=== PATIENT | female | born 1950 | race Caucasian/White ===

== ENCOUNTER 2016-05-13 09:14 | Inpatient (IN) ==
[2016-05-13] MEDS ORDERED: CeFAZolin Pre 2,000 MG/100 ML 2,000 MG/100 ML BAG IVPB ONE (09:44)
--- NOTE | 2016-05-13 10:15 | History & Physical Report ---
Date of Encounter: 05/13/16 Time of Encounter: 10:14 24 Hour HP Update - Instructions Instructions: If the History and Physical is less than 30 days old and was completed prior to A.M. admission and or procedure and has NOT been updated on calendar day of procedure please complete this update prior to performing procedure. - Update Patient reports changes in Medical Condition: No Changes in assessment/condition: No Changes in Medication: No Preop tests/diagnostics Reviewed: Yes Surgery Remains Indicated: Yes Consent for Planned Operative Procedure(s) Verified: Yes - Pre-Operative Checklist Preoperative Checklist Indicated: Yes Prophylactic Antibiotic Ordered: Yes Home Medications Include Beta Aurelio: No Beta Aruelio Taken Today (Day of Surgery): No Beta Aurelio Taken Yesterday (Day Prior to Surgery): No Is VTE Prophylaxis Indicated?: Yes
[2016-05-13] MEDS ORDERED: *HR* FentaNYL (PF) 100 MCG/2 ML VIAL ONE (10:20)
[2016-05-13] MEDS ORDERED: *HR* Propofol 200 MG/20 ML VIAL IVP ONE (10:20)
[2016-05-13] MEDS ORDERED: Lidocaine -MPF 2% 2 ML VIAL ONE ×3 (10:20→16:17)
[2016-05-13] MEDS ORDERED: *HR* Rocuronium Bromide 50 MG/5 ML VIAL ONE ×3 (10:20→15:41)
[2016-05-13] MEDS ORDERED: *HR* Midazolam HCl 2 MG/2 ML VIAL ONE (10:20)
[2016-05-13] MEDS ORDERED: Ondansetron 4 MG/2 ML VIAL ONE (10:20)
[2016-05-13] MEDS ORDERED: Bupivacaine/Clonidine Syringe 1 EACH SYRINGE ONE (10:22)
--- NOTE | 2016-05-13 10:28 | Anesthesia Evaluation PreOp ---
Date of Encounter: 05/13/16 Time of Encounter: 10:26 - Past History Planned Operation: robot/lap tvt, sacroplexy Cardiac History: HTN, Hyperlipidemia Pulmonary History: Asthma CURTAIN SUPERVISOR History: Denies Any Significant HX Other Medical History: Diabetes Type II Anesthesia History: No Prior Anesthetic Complications, Past Anesthesia (kai) Alcohol Use: none Drug use: none Medications and Allergies Allergies canagliflozin [From Invokana] Allergy (Verified 06/17/15 15:05) Dizziness escitalopram [From Lexapro] Allergy (Verified 06/17/15 15:03) Hives lamotrigine Allergy (Verified 06/17/15 15:03) Hives latex Allergy (Unverified 05/08/16 09:35) Hives naltrexone Allergy (Verified 06/17/15 15:03) Hives perphenazine Allergy (Verified 06/17/15 15:03) Hives pitavastatin [From Livalo] Allergy (Verified 06/17/15 15:03) Hives sitagliptin [From Januvia] Allergy (Verified 06/17/15 15:05) Hives Muhhpik-Zct-Nnt Reductase Inhibitor [Statins] Allergy (Verified 06/17/15 15:03) Hives - Meds/Allergy Pre-op Review Medications Reviewed: Yes Allergies Reviewed: Yes Beta Blockers on Current Med List: No Anesthesia Results - Labs Laboratory Tests 05/08/16 05/08/16 09:36 09:36 Hgb 13.6 Hct 40.6 Plt Count 298 Sodium 139 Potassium 4.2 Creatinine 0.81 - Imaging EKG: report reviewed (nsr) Anesthesia Exam O2 Sat Height 1.55 m Height 1.55 m Height 1.55 m Height 1.55 m Weight 62.596 kg Weight 62.596 kg Weight 62.596 kg Weight 62.596 kg O2 Sat by Pulse Oximetry 98 O2 Sat by Pulse Oximetry 98 Vital Signs Temp Pulse Resp BP Pulse Ox 97.9 F 84 18 160/87 98 05/13/16 09:57 05/13/16 09:57 05/13/16 09:57 05/13/16 09:57 05/13/16 09:57 Blood glucose: 174 Height: 1.55 Weight: 63 NPO (# of Hours): >8 - HEENT Pupil (Motor): Pupils equal, EOMI Mallampati: I Teeth: Normal Oral Opening: Greater than 3 - CURTAIN SUPERVISOR LOC: Oriented CURTAIN SUPERVISOR Motor: Normal RUE, Normal LUE, Normal RLE, Normal LLE, Normal Face CURTAIN SUPERVISOR Sensory: Normal: RUE, LUE, RLE, LLE, Face - Cardiac Rhythm: Regular Murmur: None - Pulmonary Breath Sounds: bilateral Clear Respiratory Effort: Symmetrical Anesthesia Assess/Plan ASA Score: 2 Modified Pitkin Scale for Level of Consciousness: Cooperative, oriented, and tranquil Anesthetic Plan: General Monitoring Plan: Standard Monitors Recovery Plan: PACU
[2016-05-13] MEDS ORDERED: Bupivacaine/EPI 1:200k 0.25%PF 10 ML VIAL INFILT ONE (10:29)
[2016-05-13] MEDS ORDERED: Lidocaine/EPI 1:200k 1% PF 10 ML VIAL ONE (10:29)
[2016-05-13] MEDS ORDERED: Lidocaine/EPI 1:100k 1% 20 ML VIAL ONE (10:29)
[2016-05-13] MEDS: Ringers Solution, Lactated 1,000 ML IVC SCH ×2 (10:30→17:28)
[2016-05-13] MEDS ORDERED: Bupivacaine/EPI 1:200k 0.5%PF 10 ML VIAL ONE (10:30)
[2016-05-13] MEDS ORDERED: Albuterol 2.5 MG/3 ML NEBULIZER ONE (10:32)
[2016-05-13] MEDS ORDERED: Lidocaine -MPF 4% 5 ML AMPUL ONE (10:37)
--- NOTE | 2016-05-13 11:24 | Anesthesia Procedures ---
Date of Encounter: 05/13/16 Time of Encounter: 11: Procedures: Anesthesia - Nerve Block Procedure Date: 05/13/16 Time: 11:22 Allergies/Adv Reactions: see emr Surgical Procedure: l/s sacrocorpolexy Checklist: Correct Patient Identifier, Correct procedure, History checked Blood Thinner: No Monitor Applied: EKG, BP, Pulse Oximetry Supplemental Oxygen via Nasal Cannula (L/min): 2 (geta) Indication: Post Op Analgesia Pre-op Neuro Deficits: No Block Type: Other (bilateral QL1) Catheter placed: No Sterile Technique: Yes Ultrasound used: Yes Anatomy identified: Yes Visual spread of Local: Yes Neuro Stimulation: No Blood on Needle Aspiration: No Smooth Injection of Local: Yes Pain with Injection of Local: No Prep: Chlorhexadine Needle: 21 x 100 mm Stimuplex Local: 0.25% Bupivicaine w/Clonidine 20 mcg/cc Volume (cc): 60 Number of Attempts: 1 (30mL bilaterally) Complications: None/effective block Vitals: Vital Signs/O2 Sat/Glucose, Most Recent Temp Pulse Resp BP Pulse Ox 97.9 F 84 18 160/87 98 05/13/16 09:59 05/13/16 09:59 05/13/16 09:59 05/13/16 09:59 05/13/16 09:59 Blood Glucose* 174
[2016-05-13] MEDS ORDERED: EPHEDrine 50 MG/ML VIAL ONE (11:47)
[2016-05-13] MEDS ORDERED: *HR* Remifentanil 2 MG VIAL IVP ONE (11:56)
[2016-05-13] MEDS ORDERED: Ondansetron 4 MG/2 ML VIAL IVP ONE (12:02)
[2016-05-13] MEDS ORDERED: *HR* HYDROmorphone (PF) 1 MG/ML SYRINGE IVP PRN ×2 (12:02→18:46)
[2016-05-13] MEDS ORDERED: *HR* HYDROmorphone 2 MG/ML SYRINGE ONE (15:29)
[2016-05-13] MEDS ORDERED: *HR* Magnesium Sulfate 1 GM/2 ML VIAL ONE (15:30)
[2016-05-13] MEDS ORDERED: Ketamine *HR* 500 MG/10 ML MDV ONE (15:32)
[2016-05-13] MEDS ORDERED: Ketorolac 30 MG/ML VIAL ONE (15:35)
[2016-05-13] MEDS ORDERED: Neostigmine Methylsulfate 3 MG/3 ML SYRINGE ONE (16:13)
[2016-05-13] MEDS ORDERED: Acetaminophen IV 1,000 MG/100 ML INFUS..BTL ONE (16:20)
--- NOTE | 2016-05-13 18:05 | OB/GYN Procedure Note ---
OB-DISH PERSON: Procedure - Diagnosis Date of procedure: 05/13/16 Pre-op diagnosis: Pelvic prolapse, JENNIFER Post-op diagnosis: other (Extensive dense pelvic adhesions) - Procedure Procedure: robotic l/s with extensive BILLIE for 1 hr, laparotomy with sacro, tvt and cys Surgeon: Kit Brooks Agricultural Equipment Test Engineer: Melissa Tay Anesthesia Type: General Estimated blood loss (cc): 700 Fluids: crystalloid Specimens collected: None Disposition: PACU Findings: Extensive pelvic adhesions b/w omenturm, rectosigmoid colon and vagina /bladder on left. Extensive adhesions b/w rectum and small bowel to right pelvic side wall obliterating presacral space, 3rd degree cystocele and rectocele.
--- NOTE | 2016-05-13 18:29 | Anesthesia Evaluation Post Op ---
Date of Encounter: 05/13/16 Time of Encounter: 18:28 - Vital Signs Vital Signs: Last Vital Signs Temp 97.4 F L 05/13/16 17:55 Pulse 74 05/13/16 18:15 Resp 16 05/13/16 18:15 BP 97/44 05/13/16 18:15 Pulse Ox 96 05/13/16 18:15 - Lungs Lungs: Clear Ascult./Percussion - Airway Airway: Non-obstructed - Cardiovascular Regular Rate - Mental Status Mental Status: Alert & Oriented, Answers Appropriately - Pain Pain Scale: 4 - Nausea Vomiting Nausea Vomiting: Not Present - Hydration Hydration: Ice chips - Discharge PostOp Status: Transfer Patient to floor
[2016-05-13] MEDS ORDERED: Naloxone 0.4 MG/ML INJ IVP PRN (18:46)
[2016-05-13] MEDS ORDERED: clonazePAM 0.5 MG TABLET PO PRN (18:46)
[2016-05-13] MEDS ORDERED: Insulin LISPRO 300 UNITS/3 ML VIAL SQ STA ×2 (19:33→21:42)
[2016-05-13] MEDS ORDERED: Insulin LISPRO 300 UNITS/3 ML VIAL SQ ONE (19:42)
[2016-05-13] MEDS: 0.9 % Sodium Chloride 1,000 ML IVC SCH (19:44)
[2016-05-13] MEDS: *HR* Metformin 500 MG TABLET PO SCH (19:49)
[2016-05-14] MEDS: 0.9 % Sodium Chloride 1,000 ML IVC SCH ×2 (03:51→17:17)
[2016-05-14 04:07] LABS: Basophils % 0.2 %; Hematocrit 22.8 % (35.3-44.9); Immature Granulocytes % 0.8 % (0-4); Lymphocytes # 1.1 K/mcL (0.6-4.6); Lymphocytes % 8.5 %; Mean Corpuscular HGB Conc 33.3 g/dL (31.6-35.5); Mean Corpuscular Hemoglobin 30.5 pg (28.0-33.3); Mean Corpuscular Volume 91.6 fL (83.0-100.0); Mean Platelet Volume 9.8 fL (9.4-12.4); Neutrophils # 10.6 K/mcL (1.6-8.9); Platelet Count 223 K/mcL (140-400); Red Blood Count 2.49 M/mcL (3.82-4.97); Red Cell Distribution Width 12.7 % (11.5-14.5); Segmented Neutrophils % 82.5 %
[2016-05-14 04:12] LABS: Hemoglobin 7.6 g/dL (11.5-15.4)
[2016-05-14] MEDS: *HR* OxyCODONE/APAP 5/325 TABLET PO PRN ×3 (06:20→20:59)
[2016-05-14] MEDS ORDERED: Insulin LISPRO 300 UNITS/3 ML VIAL SQ STA (06:40)
[2016-05-14] MEDS ORDERED: *HR* Dextrose 50 % in Water (Syg) 50 ML SYRINGE IVP PRN (07:29)
[2016-05-14] MEDS ORDERED: D5% in Water 1,000 ML IV PRN (07:29)
[2016-05-14] MEDS ORDERED: Dextrose Gel 15 GM PO PRN ×2 (07:29)
--- NOTE | 2016-05-14 07:42 | OB/GYN Progress Note ---
Date of Encounter: 05/14/16 Time of Encounter: 07:41 - Assessment and Plan (1) Pelvic prolapse Current Visit: Yes Status: Acute Doing well, s/p sacrocolpopexy Qualifiers: Prolapse type: cystocele Cystocele location: midline Qualified Code(s): N81.11 - Cystocele, midline (2) Stress bladder incontinence, female Current Visit: Yes Status: Acute s/p tvt, cont. post op care (3) Anemia Current Visit: Yes Status: Acute recheck h/h 14:00, no evidence of active bleeding. Qualifiers: Anemia type: other cause Other causes of anemia: acute posthemorrhagic Qualified Code(s): D62 - Acute posthemorrhagic anemia (4) Diabetes Current Visit: Yes Status: Acute Start SSI and follow BS Qualifiers: Diabetes mellitus type: type 2 Chronic kidney disease stage: unspecified stage Qualified Code(s): E11.22 - Type 2 diabetes mellitus with diabetic chronic kidney disease Subjective - Subjective Principal diagnosis: s/p sacrocolpopexy and tvt Interval history: Doing well without c/o. Good pain control. Hasn't been OOB yet. Clears without n/v. Objective - Vital Signs Latest vital signs: Vital Signs Temp Pulse Resp BP Pulse Ox 05/14/16 03:16 98.3 F 89 20 83/50 96 05/13/16 23:45 97.7 F 92 20 87/51 97 05/13/16 21:40 97.3 F L 93 20 89/54 95 05/13/16 20:30 97.5 F L 84 20 87/53 96 05/13/16 19:45 97.4 F L 90 22 108/67 97 05/13/16 19:15 97.4 F L 82 20 103/62 96 05/13/16 18:46 97.4 F L 77 10 102/60 100 05/13/16 18:28 97.8 F 85 16 113/52 96 05/13/16 18:15 74 16 97/44 96 05/13/16 18:05 74 20 109/52 100 05/13/16 17:55 97.4 F L 86 20 92/44 100 05/13/16 17:45 85 16 86/39 97 05/13/16 17:35 80 16 94/45 98 02/20/17 17:25 98.3 F 75 16 87/48 93 L 05/13/16 17:15 71 16 87/43 92 L 05/13/16 17:05 67 16 84/46 94 L 05/13/16 16:55 98.6 F 74 16 93/50 98 05/13/16 09:59 97.9 F 84 18 160/87 98 05/13/16 09:57 97.9 F 84 18 160/87 98 Intake and Output 05/13/16 05/13/16 05/14/16 15:59 23:59 07:59 Intake Total 100 / 100 1350 / 1350 1250 / 1250 Output Total 1375 / 1375 250 / 250 Balance 100 / 100 -25 / -25 1000 / 1000 Intake: IV Fluids 100 / 100 1150 / 1150 950 / 950 0.9 % Sodium Chloride 1, 950 / 950 000 ML @ 125 mls/hr IVC . Q8H [facility] Rx#:[id number] Lactated Ringers 1,000 ML 1150 / 1150 @ 20 mls/hr IVC .Q24H [facility] Rx#:[id number] Ancef Premix 2,000 MG/100 100 / 100 ML 2,000 mg In 100 ml @ 200 mls/hr IVPB PREOP ONE Rx#:[id number] Oral 200 / 200 300 / 300 Output: Estimated Blood Loss 700 / 700 Urine Amount (Catheter) 325 / 325 Catheter 350 / 350 250 / 250 Other: Weight 62.596 kg 66 kg 67.2 kg Blood Glucose* 174 227 222 Patient Weight 05/14/16 23:59 Weight 67.2 kg - I&O's I&O's: Intake & Output 05/11/16 05/12/16 05/13/16 05/14/16 23:59 23:59 23:59 23:59 Intake Total 1450 / 1450 1250 / 1250 Output Total 1375 / 1375 250 / 250 Balance 75 / 75 1000 / 1000 Weight 66 kg 67.2 kg - Exam Lungs: bilateral: normal Chest: Normal S1, Normal S2 Extremities: Present: normal Abdomen: Present: soft Incision OB: Present: dressed - Labs Labs: Abnormal lab results WBC 12.8 K/mcL (4.3-11.1) H D 05/14/16 03:51 RBC 2.49 M/mcL (3.82-4.97) L 05/14/16 03:51 Hgb 7.6 g/dL (11.5-15.4) L D 05/14/16 03:51 Hct 22.8 % (35.3-44.9) L 05/14/16 03:51 Neutrophils # 10.6 K/mcL (1.6-8.9) H 05/14/16 03:51 POC Glucose 222 (58-89) H 05/14/16 06:24 Consult Discharge Plan - Plan Referrals: Prosper Arauz MD [Primary Care Provider] -
[2016-05-14] MEDS: Insulin LISPRO 300 UNITS/3 ML VIAL SQ SCH ×3 (08:34→17:14)
[2016-05-14] MEDS: *HR* Metformin 500 MG TABLET PO SCH ×3 (08:34→20:54)
[2016-05-14] MEDS: Aspirin Enteric Coated 81 MG Tablet PO SCH (09:28)
[2016-05-14] MEDS: *HR* Glimepiride 2 MG TABLET PO SCH (09:28)
[2016-05-14] MEDS: Lisinopril-HCTZ 20-12.5mg TABLET PO SCH (09:29)
[2016-05-15] MEDS: Ondansetron 4 MG/2 ML VIAL IVP PRN ×2 (00:17→07:05)
[2016-05-15] MEDS ORDERED: Ondansetron 4 MG/2 ML VIAL IM ONE (06:48)
[2016-05-15] MEDS ORDERED: Ondansetron ODT 4 MG TAB.RAPDIS SL ONE (07:10)
[2016-05-15 08:12] LABS: Basophils % 0.3 %; Eosinophils % 0.2 %; Hematocrit 22.2 % (35.3-44.9); Hemoglobin 7.4 g/dL (11.5-15.4); Immature Granulocytes % 0.8 % (0-4); Lymphocytes # 1.2 K/mcL (0.6-4.6); Lymphocytes % 10.7 %; Mean Corpuscular HGB Conc 33.3 g/dL (31.6-35.5); Mean Corpuscular Hemoglobin 30.5 pg (28.0-33.3); Mean Corpuscular Volume 91.4 fL (83.0-100.0); Mean Platelet Volume 10.3 fL (9.4-12.4); Monocytes # 0.9 K/mcL (0.0-1.3); Monocytes % 8.6 %; Neutrophils # 8.6 K/mcL (1.6-8.9); Platelet Count 185 K/mcL (140-400); Red Blood Count 2.43 M/mcL (3.82-4.97); Red Cell Distribution Width 12.9 % (11.5-14.5); Segmented Neutrophils % 79.4 %
[2016-05-15] MEDS: *HR* Glimepiride 2 MG TABLET PO SCH (08:51)
[2016-05-15] MEDS: Lisinopril-HCTZ 20-12.5mg TABLET PO SCH (08:51)
[2016-05-15] MEDS: Aspirin Enteric Coated 81 MG Tablet PO SCH (08:52)
[2016-05-15] MEDS: *HR* Metformin 500 MG TABLET PO SCH ×3 (08:53→19:49)
[2016-05-15] MEDS: Insulin LISPRO 300 UNITS/3 ML VIAL SQ SCH ×3 (09:03→16:49)
[2016-05-15] MEDS: *HR* OxyCODONE/APAP 5/325 TABLET PO PRN ×2 (14:05→19:50)
--- NOTE | 2016-05-15 18:38 | OB/GYN Progress Note ---
Date of Encounter: 05/15/16 Time of Encounter: 18:35 - Assessment and Plan (1) Pelvic prolapse Current Visit: Yes Status: Acute Doing well, s/p sacrocolpopexy. Will cont. post op care, hopefully d/c home tomorrow to assisted living/rehab. secondary to difficulties with independent living. Qualifiers: Prolapse type: cystocele Cystocele location: midline Qualified Code(s): N81.11 - Cystocele, midline (2) Stress bladder incontinence, female Current Visit: Yes Status: Acute s/p tvt, cont. post op care (3) Anemia Current Visit: Yes Status: Acute Pt's h/h are stable. No symptoms of anemia. Will start on iron at d/c. Qualifiers: Anemia type: other cause Other causes of anemia: acute posthemorrhagic Qualified Code(s): D62 - Acute posthemorrhagic anemia (4) Diabetes Current Visit: Yes Status: Acute Start SSI and follow BS Qualifiers: Diabetes mellitus type: type 2 Chronic kidney disease stage: unspecified stage Qualified Code(s): E11.22 - Type 2 diabetes mellitus with diabetic chronic kidney disease Subjective - Subjective Principal diagnosis: s/p open sacrocolpopexy and TVT Interval history: Pt is doing well, taking regular diet without n/v, + flatus. Voiding without difficulty. Can't go home b/c is living by self and no family around. Can't get food, can't drive, can't get in the bed she owns or bath. Objective - Vital Signs Latest vital signs: Vital Signs Temp Pulse Resp BP Pulse Ox 05/15/16 15:58 18 05/15/16 14:11 18 98 05/15/16 08:32 98.7 F 91 16 148/77 05/15/16 03:00 97.8 F 92 16 132/78 92 L 05/15/16 00:20 97.4 F L 94 16 135/73 94 L 05/14/16 19:30 97.4 F L 94 14 116/68 95 Intake and Output 05/15/16 05/15/16 05/15/16 07:59 15:59 23:59 Intake Total 540 / 540 Output Total 1550 / 1550 1900 / 1900 Balance -1550 / -1550 -1360 / -1360 Intake: Oral 540 / 540 Output: Urine 1400 / 1400 1900 / 1900 Emesis 150 / 150 Other: Meal Lunch Percent of Meal Consumed 80% Weight 70.5 kg Blood Glucose* 159 173 Patient Weight 05/15/16 23:59 Weight 70.5 kg - I&O's I&O's: Intake & Output 05/12/16 05/13/16 05/14/16 05/15/16 23:59 23:59 23:59 23:59 Intake Total 1450 / 1450 4050 / 4050 540 / 540 Output Total 1425 / 1425 1350 / 1350 3450 / 3450 Balance 2700 / 2700 -2910 / -2910 Weight 66 kg 67.2 kg 70.5 kg - Exam Lungs: bilateral: normal Chest: Normal S1, Normal S2 Extremities: Present: normal Abdomen: Present: soft Incision OB: Present: normal, intact - Labs Labs: Abnormal lab results RBC 2.43 M/mcL (3.82-4.97) L 05/15/16 07:43 Hgb 7.4 g/dL (11.5-15.4) L 05/15/16 07:43 Hct 22.2 % (35.3-44.9) L 05/15/16 07:43 POC Glucose 173 (58-89) H 05/15/16 16:44 Consult Discharge Plan - Plan Referrals: Prosper Arauz MD [Primary Care Provider] -
[2016-05-16] MEDS: *HR* OxyCODONE/APAP 5/325 TABLET PO PRN ×2 (00:16→05:32)
--- NOTE | 2016-05-16 07:36 | Discharge Summary ---
Date of Encounter: 05/16/16 Time of Encounter: 07:32 - Discharge Diagnosis (1) Pelvic prolapse Priority: Primary Status: Acute Qualifiers: Prolapse type: cystocele Cystocele location: midline Qualified Code(s): N81.11 - Cystocele, midline (2) Stress bladder incontinence, female Priority: Secondary Status: Acute (3) Anemia Priority: Secondary Status: Acute (4) Diabetes Priority: Secondary Status: Acute Qualifiers: Diabetes mellitus type: type 2 Diabetes mellitus vermin exterminator insulin use: unspecified [facility] insulin use status Chronic kidney disease stage: unspecified stage Qualified Code(s): E11.22 - Type 2 diabetes mellitus with diabetic chronic kidney disease - Discharge Medications Prescriptions: OxyCODONE/APAP 5/325 [Percocet 5/325 MG] 1 each PO Q4HR PRN #40 tablet PRN Reason: post op pain Ibuprofen [Motrin] 600 mg PO Q6HR PRN #40 tab PRN Reason: post op pain Home Medications: Albuterol Sulfate [Albuterol Inhaler] 2 puff IH Q4HR PRN 05/13/16 [History] Aspirin Enteric Coated [Aspirin EC] 81 mg PO DAILY 05/13/16 [History] ClonazePAM [Klonopin] 0.5 mg PO DAILY PRN 05/13/16 [History] Glimepiride [Amaryl] 2 mg PO DAILY 05/13/16 [History] Lisinopril/Hydrochlorothiazide [Zestoretic 20-12.5 mg Tablet] 1 each PO DAILY [History] Metformin [Glucophage] 500 mg PO TID 05/13/16 [History] Ibuprofen [Motrin] 600 mg PO Q6HR PRN #40 tab 05/16/16 [Rx] OxyCODONE/APAP 5/325 [Percocet 5/325 MG] 1 each PO Q4HR PRN #40 tablet 05/16/16 [Rx] Cephalexin [Keflex] 500 mg PO TID #21 capsule 05/24/16 [Rx] Allergies/Adverse Reactions: Allergies escitalopram [From Lexapro] Allergy (Verified 06/17/15 15:03) Hives lamotrigine Allergy (Verified 06/17/15 15:03) Hives naltrexone Allergy (Verified 06/17/15 15:03) Hives perphenazine Allergy (Verified 05/13/16 11:15) See Comments *patient unsure of reaction pitavastatin [From Livalo] Allergy (Verified 06/17/15 15:03) Hives sitagliptin [From Januvia] Allergy (Verified 05/13/16 11:15) Confusion Apmutwj-Xmk-Xzz Reductase Inhibitor [Statins] Allergy (Verified 05/13/16 11:15) Difficulty Breathing canagliflozin [From Invokana] Adverse Reaction (Verified 05/13/16 11:15) Confusion latex Adverse Reaction (Verified 05/24/16 09:37) Hives tested negative Data Procedures and tests throughout hospitalization: Laboratory Tests 05/13/16 05/13/16 05/13/16 10:26 16:58 19:25 WBC RBC Hgb Hct MCV MCH MCHC RDW Plt Count MPV Immature Gran % Seg Neutrophils % Lymphocytes % Monocytes % Eosinophils % Basophils % Neutrophils # Lymphocytes # Monocytes # Eosinophils # Basophils # POC Glucose 175 H 259 H 351 H 05/13/16 05/13/16 05/13/16 21:36 22:17 23:41 WBC RBC Hgb Hct MCV MCH MCHC RDW Plt Count MPV Immature Gran % Seg Neutrophils % Lymphocytes % Monocytes % Eosinophils % Basophils % Neutrophils # Lymphocytes # Monocytes # Eosinophils # Basophils # POC Glucose 292 H 271 H 227 H 05/14/16 05/14/16 05/14/16 03:51 06:24 08:32 WBC 12.8 H D RBC 2.49 L Hgb 7.6 L D Hct 22.8 L MCV 91.6 MCH 30.5 MCHC 33.3 RDW 12.7 Plt Count 223 MPV 9.8 Immature Gran % 0.8 Seg Neutrophils % 82.5 Lymphocytes % 8.5 Monocytes % 8.0 Eosinophils % 0.0 Basophils % 0.2 Neutrophils # 10.6 H Lymphocytes # 1.1 Monocytes # 1.0 Eosinophils # 0.0 Basophils # 0.0 POC Glucose 222 H 176 H 05/14/16 05/14/16 05/14/16 11:54 17:00 21:12 WBC RBC Hgb Hct MCV MCH MCHC RDW Plt Count MPV Immature Gran % Seg Neutrophils % Lymphocytes % Monocytes % Eosinophils % Basophils % Neutrophils # Lymphocytes # Monocytes # Eosinophils # Basophils # POC Glucose 114 H 226 H 211 H 05/15/16 05/15/16 05/15/16 07:43 09:00 11:54 WBC 10.8 RBC 2.43 L Hgb 7.4 L Hct 22.2 L MCV 91.4 MCH 30.5 MCHC 33.3 RDW 12.9 Plt Count 185 MPV 10.3 Immature Gran % 0.8 Seg Neutrophils % 79.4 Lymphocytes % 10.7 Monocytes % 8.6 Eosinophils % 0.2 Basophils % 0.3 Neutrophils # 8.6 Lymphocytes # 1.2 Monocytes # 0.9 Eosinophils # 0.0 Basophils # 0.0 POC Glucose 286 H 159 H 05/15/16 05/15/16 05/16/16 16:44 19:50 00:03 WBC RBC Hgb Hct MCV MCH MCHC RDW Plt Count MPV Immature Gran % Seg Neutrophils % Lymphocytes % Monocytes % Eosinophils % Basophils % Neutrophils # Lymphocytes # Monocytes # Eosinophils # Basophils # POC Glucose 173 H 217 H 174 H Labs on day of discharge: Labs from last 24 hours 05/16/16 05/15/16 05/15/16 00:03 19:50 16:44 WBC RBC Hgb Hct MCV MCH MCHC RDW Plt Count MPV Immature Gran % Seg Neutrophils % Lymphocytes % Monocytes % Eosinophils % Basophils % Neutrophils # Lymphocytes # Monocytes # Eosinophils # Basophils # POC Glucose 174 H 217 H 173 H 05/15/16 05/15/16 05/15/16 11:54 09:00 07:43 WBC 10.8 RBC 2.43 L Hgb 7.4 L Hct 22.2 L MCV 91.4 MCH 30.5 MCHC 33.3 RDW 12.9 Plt Count 185 MPV 10.3 Immature Gran % 0.8 Seg Neutrophils % 79.4 Lymphocytes % 10.7 Monocytes % 8.6 Eosinophils % 0.2 Basophils % 0.3 Neutrophils # 8.6 Lymphocytes # 1.2 Monocytes # 0.9 Eosinophils # 0.0 Basophils # 0.0 POC Glucose 159 H 286 H - Impressions Doing well Date of admission: 05/13/16 17:52 Primary care physician: Prosper Arauz MD Consults: 05/15/16 12:20 Consult to Rubber Process Hand (W&C) [CONS] Routine Reason For Exam: Reason for SW Consult: ECF placement - Patient Status Disposition: Home, Self-Care Condition: Good Functional capacity at discharge: independent ambulation Overall status at discharge: patient is progressing back to baseline - Discharge Instructions Follow Up With: Kit Brooks MD [Partnered Physician] - Additional Instructions: f/u one week for staple removal - Diet and Activity Activity: increase activity as tolerated Diet: advance to your usual diet Hospital Course LAYOUT MAN Time Attestation: Total time spent providing and/or coordinating discharge services: Exam - Constitutional Vitals: Temp Pulse Resp BP Pulse Ox 98 F 90 16 108/68 95 05/16/16 00:11 05/16/16 00:11 05/16/16 00:11 05/16/16 00:11 05/16/16 00:11 General appearance IM: A&O X 3 - Respiratory Respiratory exam: Present: CTAB - Cardiovascular Cardiovascular exam IM: Present: RRR - GI/Abdominal GI/Abdominal exam IM: normal bowel sounds Incision: normal, intact - Extremities Exam Extremities exam IM: Present: full ROM - Neurological Exam Neurological exam: oriented X3 - VTE Documentation of Mechanical Device: Intermittent pneumatic compression device
[2016-05-16] MEDS ORDERED: Ibuprofen 600 MG TABLET PO PRN (08:01)
[2016-05-16] MEDS: Insulin LISPRO 300 UNITS/3 ML VIAL SQ SCH (08:13)
[2016-05-16 08:14] VITALS: BP 113/63
[2016-05-16] MEDS: *HR* Glimepiride 2 MG TABLET PO SCH (08:38)
[2016-05-16] MEDS: Lisinopril-HCTZ 20-12.5mg TABLET PO SCH (08:38)
[2016-05-16] MEDS: Aspirin Enteric Coated 81 MG Tablet PO SCH (08:38)
--- NOTE | 2016-05-16 08:40 | Physician Discharge Referral ---
ExtendedCare Referral Info Transfer To: [facility] Provider in Charge after Transfer: Other Institutional Level of Care: Skilled - Diagnosis (1) Pelvic prolapse Status: Acute (2) Stress bladder incontinence, female Status: Acute (3) Anemia Status: Acute (4) Diabetes Status: Acute Prognosis: Good Aware of Diagnosis: Patient Aware of Prognosis: Patient - Transfer Medications Prescriptions: OxyCODONE/APAP 5/325 [Percocet 5/325 MG] 1 each PO Q4HR PRN #40 tablet PRN Reason: post op pain Ibuprofen [Motrin] 600 mg PO Q6HR PRN #40 tab PRN Reason: post op pain Home Medications: Albuterol Sulfate [Albuterol Inhaler] 2 puff IH Q4HR PRN 05/13/16 [History] Aspirin Enteric Coated [Aspirin EC] 81 mg PO DAILY 05/13/16 [History] ClonazePAM [Klonopin] 0.5 mg PO DAILY PRN 05/13/16 [History] Glimepiride [Amaryl] 2 mg PO DAILY 05/13/16 [History] Lisinopril/Hydrochlorothiazide [Zestoretic 20-12.5 mg Tablet] 1 each PO DAILY [History] Metformin [Glucophage] 500 mg PO TID 05/13/16 [History] Ibuprofen [Motrin] 600 mg PO Q6HR PRN #40 tab 05/16/16 [Rx] OxyCODONE/APAP 5/325 [Percocet 5/325 MG] 1 each PO Q4HR PRN #40 tablet 05/16/16 [Rx] Allergies/Adverse Reactions: Allergies escitalopram [From Lexapro] Allergy (Verified 06/17/15 15:03) Hives lamotrigine Allergy (Verified 06/17/15 15:03) Hives naltrexone Allergy (Verified 06/17/15 15:03) Hives perphenazine Allergy (Verified 05/13/16 11:15) See Comments *patient unsure of reaction pitavastatin [From Livalo] Allergy (Verified 06/17/15 15:03) Hives sitagliptin [From Januvia] Allergy (Verified 05/13/16 11:15) Confusion Hnrxmyd-Due-Msn Reductase Inhibitor [Statins] Allergy (Verified 05/13/16 11:15) Difficulty Breathing canagliflozin [From Invokana] Adverse Reaction (Verified 05/13/16 11:15) Confusion latex Adverse Reaction (Unverified 05/13/16 11:15) Hives tested negative - Respiratory Orders Smoking Cessation: Smoking cessation has been advised. For more information, call the [place] Tobacco Quit Line at 5-044-YAQQ-NOW. - Advance Directives Code Status: Full Code - Mobility Orders Ambulate - Rehabiliation Orders Rehab Potential: Good Rehab Orders: Evaluation for Physical Therapy, Evaluation for Occupational Therapy - Diet Orders Regular (diabetic diet) CERTIFICATION: I certify that the transfer of the above named patient to an Extended Care Facility is necessary for the continuing treatment of the diagnosis listed. The above information is true and accurate reflection of patient's current condition. Confidential - Redisclosure prohibited without a patient's written consent.
[2016-05-16] MEDS: *HR* Metformin 500 MG TABLET PO SCH (08:48)
== END 2016-05-16 10:25 | DRG 748 ==
LOC: SAMDAY 09:14 → 1NENUOBS 17:52
PROVIDERS: ADMIT Obstetrics & Gynecology; ATTEND Obstetrics & Gynecology